=== PATIENT | female | born 1985 | race Caucasian/White ===

== ENCOUNTER 2017-12-24 05:52 | Day surgery (SDC) | payer BC, OTHER ==
[2017-12-24] MEDS ORDERED: Midazolam 1 MG/ML 2 ML SDV IV ONE ×3 (05:53→07:01)
[2017-12-24] MEDS ORDERED: fentaNYL 100 MCG/2 ML SDV IV ONE ×3 (05:53→06:59)
[2017-12-24] MEDS ORDERED: Dextrose 5%-0.45% NaCl 1,000 ML IV SCH (06:00)
[2017-12-24] MEDS ORDERED: Sodium Chloride 0.9% 10 ML Syringe FLUSH PRN (06:00)
[2017-12-24] MEDS ORDERED: fentaNYL 100 MCG/2 ML SDV ONE (06:42)
[2017-12-24] MEDS ORDERED: Midazolam 1 MG/ML 2 ML SDV ONE (06:42)
--- NOTE | 2017-12-24 13:35 | OR ---
DATE: 12/24/2017 PROCEDURE: Esophagogastroduodenoscopy and multiple pinch biopsies. INSTRUMENT USED: GIF-Q180 Olympus video panendoscope. PREMEDICATIONS: No oral topical anesthesia used. Fentanyl 100 mcg intravenous, Versed 2 mg intravenous. Nasal O2 cannula. The procedure was done under pulse oximetry, BP recording, and cardiac nurse specialist. INDICATION: The patient with longstanding heartburn and dependent on PPI. Esophagogastroduodenoscopy is performed for detection of any active erosive lesions, Beal esophagus and/or malignancy also under consideration, H. pylori status to be determined, endoscopic hemostasis therapy if needed. The scope was passed with ease. Adequate visualization of the esophagus was made from proximal to distal areas. No upper esophageal lesions identified. No distal esophageal stricture. No uphill or downhill esophageal varices. No Melina-Blank tear. No evidence of erosive esophagitis by [place] criteria. No esophageal polyp or tumor mass identified. Z-line was seen at around 37 cm distal to the oral verge. 4-quadrant biopsies were taken and sent for any histopathologic evidence of intestinal metaplasia. No esophageal polyp or tumor mass identified. No proximal gastric varices noted. Gastric fundus examination by retroflexion showed no polypoid lesions. No gastric ulcer, malignant mass, or vascular ectasia identified. Duodenal bulb showed no ulcer. Visualized second part of the duodenum was unremarkable. Multiple pinch biopsies were taken from the gastric antrum and proximal body and sent for PyloriTek test for H. pylori and histopathology. No bleeding was noted from any of the visualized areas at the completion of examination. Photographs were taken of the duodenal bulb, gastric antrum, fundus, and distal esophagus. IMPRESSION: Columnar-lined distal esophagus. The patient tolerated the procedure well. [facility] /[id number]
== END 2017-12-24 09:12 | disposition home or self-care (01) ==
LOC: DL.ENDO 05:52
PROVIDERS: ATTEND Internal Medicine Gastroenterology
DX: R12 Heartburn (principal); E66.09 Other obesity due to excess calories; F41.1 Generalized anxiety disorder; Z87.891 Personal history of nicotine dependence; Z88.8 Allergy status to other drugs, medicaments and biological substances
CPT/HCPCS: 43239; 87077; J2250; J3010; J7042

== ENCOUNTER 2020-01-01 10:59 | Emergency (ER) | payer OTHER ==
--- NOTE | 2020-01-01 11:23 | EDM.PDOC ---
ED HPI GENERAL MEDICAL PROBLEM - General Chief Complaint: Abdominal Pain Stated Complaint: [id number] STOMACH X 4-5 DAYS Time Seen by Provider: 01/01/20 11:22 Source of Information: Reports: Patient, Old Records, RN, RN Notes Reviewed History Limitations: Reports: No Limitations - History of Present Illness INITIAL COMMENTS - FREE TEXT/NARRATIVE: Pt presents to ER with c/o midline upper abdominal pain that started 4 days ago. She reports having regular/normal BMs, no N/V/D/C, fever, chills, radiating pain, or urinary symptoms. Hx of GERD. Pt started OTC Prevacid once daily 3 days ago. 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) Middle Abdomen Pain Score (Numeric/FACES): 6 - Related Data Allergies Allergy/AdvReac Type Severity Reaction Status Date / Time clonazepam Allergy Other Verified 01/01/20 11:11 Home Meds: Home Meds ALPRAZolam [Alprazolam] 0.25 mg PO BEDTIME PRN 12/23/17 [History] Aluminum Chloride [Hypercare 20%] 1 dose TOP ASDIRECTED 12/23/17 [History] Desogestrel-Ethinyl Estradiol [Apri 28 Day Tablet] 1 tab PO ASDIRECTED 12/23/17 [History] Lansoprazole [Prevacid] 15 mg PO .QOD 12/23/17 [History] Sertraline HCl 50 mg PO DAILY 12/23/17 [History] buPROPion [buPROPion XL] 150 mg PO DAILY 12/23/17 [History] Past Medical History HEENT History: Reports: None Cardiovascular History: Reports: None Respiratory History: Reports: None Gastrointestinal History: Reports: GERD Genitourinary History: Reports: None [employer] 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: Musculoskeletal History: Reports: None Neurological History: Reports: None Psychiatric History: Reports: Anxiety, Depression Endocrine/Metabolic History: Reports: Obesity/BMI 30+ Hematologic History: Reports: None Immunologic History: Reports: None Oncologic (Cancer) History: Reports: None Dermatologic History: Reports: Psoriasis - Infectious Disease History Infectious Disease History: Reports: Chicken Pox - Past Surgical History Head Surgeries/Procedures: Reports: None HEENT Surgical History: Reports: None Cardiovascular Surgical History: Reports: None Respiratory Surgical History: Reports: None Female Surgical History: Reports: Other (See Below) Other Female Surgeries/Procedures: cervical bx Musculoskeletal Surgical History: Reports: None Social & Family History - Family History Family Medical History: Noncontributory - Tobacco Use Smoking Status *Q: Current Every Day Smoker Years of Tobacco use: 8 Packs/Tins Daily: 0.3 - Caffeine Use Caffeine Use: Reports: None Other Caffeine Use: 3 cans weekly - Recreational Drug Use Recreational Drug Use: No - Living Situation & Occupation Living situation: Reports: with Family Occupation: Employed ED ROS GENERAL - Review of Systems Review Of Systems: Comprehensive ROS is negative, except as noted in HPI. ED EXAM, GI/ABD - Physical Exam Exam: See Below Exam Limited By: No Limitations General Appearance: Alert, WD/WN, No Apparent Distress Eyes: Bilateral: Normal Appearance (No scleral icterus) Throat/Mouth: Normal Inspection Head: Atraumatic, Normocephalic Respiratory/Chest: No Respiratory Distress, Lungs Clear, Normal Breath Sounds, No Accessory Muscle Use, Chest Non-Tender Cardiovascular: Regular Rate, Rhythm GI/Abdominal Exam: Normal Bowel Sounds, Soft, No Organomegaly, No Distention, No Abnormal Bruit, No Mass, Tender (Focal epigastric tenderness) Back Exam: Normal Inspection. No: CVA Tenderness (L), CVA Tenderness (R) Neurological: Alert, Oriented, No Motor/Sensory Deficits Psychiatric: Normal Mood Skin Exam: Warm, Dry, Intact, Normal Color, No Rash Course - Vital Signs Last Recorded V/S: Last Vital Signs Temp 98.9 F 01/01/20 11:08 Pulse 107 H 01/01/20 11:08 Resp 16 01/01/20 11:08 BP 134/93 H 01/01/20 11:08 Pulse Ox 98 01/01/20 11:08 - Orders/Labs/Meds Labs: Laboratory Tests 01/01/20 01/01/20 Range/Units 11:35 11:35 WBC 7.7 (5.0-10.0) 10^3/uL RBC 3.77 L (4.2-5.4) 10^6/uL Hgb 14.4 (12.0-16.0) g/dL Hct 41.0 (37.0-47.0) % MCV 108.8 H (80-100) fL MCH 38.2 H (27.0-34.0) pg MCHC 35.1 H (33.0-35.0) g/dL Plt Count 152 (150-450) 10^3/uL Neut % (Auto) 73.6 (42.2-75.2) % Lymph % (Auto) 17.2 L (20.5-50.1) % [place] % (Auto) 7.3 (2-8) % Eos % (Auto) 1.2 (1.0-3.0) % Baso % (Auto) 0.7 (0.0-1.0) % Sodium 140 (136-145) mmol/L Potassium 4.3 (3.5-5.1) mmol/L Chloride 100 (98-107) mmol/L Carbon Dioxide 26 (21-32) mmol/L Anion Gap 18.3 H (7-13) mEq/L BUN 9 (7-18) mg/dL Creatinine 0.86 (0.55-1.02) mg/dL Est Cr Clr Drug Dosing 78.84 mL/min Estimated GFR (MDRD) > 60 BUN/Creatinine Ratio 10.5 (No establ ref range) Glucose 97 (74-99) mg/dL Calcium 8.3 L (8.5-10.1) mg/dL Total Bilirubin 1.5 H (0.2-1.0) mg/dL AST 483 H (15-37) U/L ALT 63 H (14-59) U/L Alkaline Phosphatase 247 H (46-116) U/L Total Protein 7.6 (6.4-8.2) g/dL Albumin 3.0 L (3.4-5.0) g/dL Globulin 4.6 Albumin/Globulin Ratio 0.65 Amylase 70 (25-115) U/L Lipase 637 H (73-393) U/L Meds: Medications Discontinued Medications Generic Name Dose Route Start Last Admin Trade Name Freq PRN Reason Stop Dose Admin Al Hydroxide/Mg Hydroxide 30 ml 01/01/20 11:29 01/01/20 11:34 Gi Cocktail PO 01/01/20 11:30 30 ml ONETIME ONE Administration - Re-Assessments/Exams Free Text/Narrative Re-Assessment/Exam: 09/04/20 12:30 Labs reviewed with pt, at which point she admits to heavy daily alcohol consumption. She agrees to taper and eliminate her alcohol use and follow up in clinic for recheck and consideration of an abd. US. Departure - Departure Time of Disposition: 12:31 Disposition: Home, Self-Care 01 Condition: Good Clinical Impression: Alcoholic hepatitis without ascites, Alcohol abuse Gastritis Qualifiers: Gastritis type: unspecified gastritis Chronicity: acute Gastritis bleeding: without bleeding Qualified Code(s): K29.00 - Acute gastritis without bleeding - Discharge Information *PRESCRIPTION DRUG MONITORING PROGRAM REVIEWED*: Not Applicable *COPY OF PRESCRIPTION DRUG MONITORING REPORT IN PATIENT [place]: Not Applicable Instructions: Peptic Ulcer, Gastritis, Adult, Alcoholic Liver Disease Forms: ED Department Discharge Additional Instructions: Rx: Carafate 1g Abstain from alcohol consumption. Continue over the counter Prevacid, but increase to 2 capsules daily for one month. Follow up in clinic next week for liver recheck and an abdominal ultrasound. Sepsis Event Note (ED) - Evaluation Sepsis Screening Result: No Definite Risk - Focused Exam Vital Signs: Vital Signs Temp Pulse Resp BP Pulse Ox 01/01/20 11:08 98.9 F 107 H 16 134/93 H 98
[2020-01-01] MEDS ORDERED: GI Cocktail Oral Solution 30 ML PO ONE (11:29)
[2020-01-01 12:00] LABS: ANION GAP 18.3 mEq/L (7-13); CHLORIDE,CL 100 mmol/L (98-107); SODIUM,NA 140 mmol/L (136-145)
== END 2020-01-01 12:33 | disposition home or self-care (01) ==
LOC: DL.ED 10:59
DX: K29.00 Acute gastritis without bleeding (principal); K70.10 Alcoholic hepatitis without ascites; F10.10 Alcohol abuse, uncomplicated; K21.9 Gastro-esophageal reflux disease without esophagitis; F41.9 Anxiety disorder, unspecified; F32.9 Major depressive disorder, single episode, unspecified; E66.9 Obesity, unspecified; Z68.28 Body mass index [BMI] 28.0-28.9, adult; F17.210 Nicotine dependence, cigarettes, uncomplicated; Z79.899 Other long term (current) drug therapy; Z88.8 Allergy status to other drugs, medicaments and biological substances
CPT/HCPCS: 36415; 80053; 82150; 83690; 85025; 99284; A9270

== ENCOUNTER 2022-04-15 07:20 | Emergency (ER) | payer MEDICAID ==
[2022-04-15] MEDS ORDERED: Lidocaine 2% Viscous Solution 15 ML UD PO ONE ×2 (07:21→07:50)
[2022-04-15] MEDS ORDERED: Clindamycin HCl 150 MG Cap PO ONE ×2 (07:21→07:50)
[2022-04-15] MEDS ORDERED: Acetaminophen/HYDROcodone 325-10 MG Tab PO ONE (07:21)
[2022-04-15] MEDS ORDERED: Clindamycin HCl 150 MG Cap ONE (08:08)
[2022-04-15] MEDS ORDERED: Acetaminophen/HYDROcodone 325-10 MG Tab ONE (08:12)
[2022-04-15] MEDS ORDERED: Lidocaine 2% Viscous Solution 15 ML UD ONE (08:13)
== END 2022-04-15 08:20 | disposition home or self-care (01) ==
LOC: DL.ED 07:20
DX: K04.7 Periapical abscess without sinus (principal); E66.9 Obesity, unspecified; Z72.0 Tobacco use; Z88.8 Allergy status to other drugs, medicaments and biological substances
CPT/HCPCS: 99282; A9270